=== PATIENT | female | born 1965 | race Caucasian/White ===

== ENCOUNTER 2020-10-15 10:47 | Emergency (ER) | payer OTHER, SELFPAY ==
[~2020-10-15] VITALS: Ht 162.6 cm; Wt 86.2 kg
[2020-10-15 11:03] VITALS: BP 101/87
--- NOTE | 2020-10-15 11:10 | NUR ---
54/F BIB SELF C/O COUGH. HEADACHE, FEVER X TODAY. PT IS RN. CLOSED CONTACT WITH CONFIRMED CASE OF COVID.MED HX: HYSTERECTOMY. DENIES N/V/D; SKIN IS PINK/WARM/DRY; AAOX4 WITH EVEN AND STEADY GAIT; LUNGS CLEAR BL; HR EVEN AND REGULAR; PT DENIES ANY FEVER, CP, SOB AT THIS TIME; PATIENT STATES PAIN OF 3/10 AT THIS TIME.
--- NOTE | 2020-10-15 11:54 | NUR ---
COVID SWAB SENT TO LAB
[2020-10-15 11:58] VITALS: BP 101/87
--- NOTE | 2020-10-15 11:58 | NUR ---
Patient discharged with v/s stable. Written and verbal after care instructions about covid 19 given and explained. Patient verbalized understanding. Ambulatory with steady gait. All questions addressed prior to discharge. Advised to follow up with PMD.
--- NOTE | 2020-10-17 12:14 | NUR ---
Covid results received from lab. Results = POSITIVE. Hard copy requested from lab and placed in infection controls mailbox.
== END 2020-10-15 11:58 | disposition home or self-care (01) ==
LOC: MED 10:47
DX: R50.9 Fever, unspecified (principal); Z20.828 Contact with and (suspected) exposure to other viral communicable diseases; Z88.8 Allergy status to other drugs, medicaments and biological substances
CPT/HCPCS: 99283; U0003

== ENCOUNTER 2020-10-21 19:18 | Emergency (ER) | payer OTHER, SELFPAY ==
[~2020-10-21] VITALS: Ht 162.6 cm; Wt 86.2 kg
[2020-10-21 19:30] VITALS: BP 140/78
--- NOTE | 2020-10-21 19:35 | NUR ---
PT AMBULATED TO BED #2
--- NOTE | 2020-10-21 19:40 | NUR ---
54 Y/O FEMALE PRESENTED TO THE ED C/O FEVER, SOB, FOSTER, & N/V. PT HAS DIMINISHED LUNG SOUNDS THROUGHOUT. CAP REFILL <3. S1 & S2 NOTED. PT STATED 6/10 PAIN FOR HER CONSTANT THROBBING/ACHING HEADACHE. NOT IN ACUTE DISTRESS AT THIS TIME. PT CONNECTED TO GUNNER'S MATE. BED IS LOCKED AND IN LOWEST POSITION. PMH: DENIES NKA
--- NOTE | 2020-10-21 20:00 | NUR ---
ERMD AT BEDSIDE FOR MEDICAL EVALUATION
[2020-10-21] MEDS ORDERED: DEXAMETHASONE 4 MG/ML VIAL IVP ONE (20:05)
[2020-10-21] MEDS ORDERED: HYDROXYCHLOROQUINE 200 MG TAB PO ONE (20:10)
[2020-10-21] MEDS ORDERED: ENOXAPARIN 80 MG/0.8 ML SYR SUBQ ONE (20:10)
--- NOTE | 2020-10-21 20:17 | NUR ---
BLOOD CULTURES AND LABS COLLECTED AND HANDED TO LAB.
--- NOTE | 2020-10-21 20:19 | NUR ---
RT AT BEDSIDE FOR ABG PROCEDURE.
--- NOTE | 2020-10-21 20:20 | NUR ---
EKG AT BEDSIDE FOR RN ADMINISTRATION.
[2020-10-21 20:32] LABS: BASOPHILS % (AUTO) 0.3 % (0.0-2.0); HEMATOCRIT 36.8 % (36-48); HEMOGLOBIN 12.6 g/dL (12.0-16.0); LYMPHOCYTES # (AUTO) 0.8 K/uL (2.5-16.5); LYMPHOCYTES % (AUTO) 13.6 % (20.5-51.1); MEAN CORPUSCULAR HEMOGLOBIN 31 pg (27-31); MEAN CORPUSCULAR HGB CONC 34 g/dL (33-37); MEAN CORPUSCULAR VOLUME 89.1 fL (80-94); MONOCYTES # (AUTO) 0.3 K/uL (0.8-1.0); MONOCYTES % (AUTO) 6.2 % (1.7-9.3); NEUTROPHILS # (AUTO) 4.5 K/uL (1.8-7.7); NEUTROPHILS % (AUTO) 79.9 % (42.2-75.2); PLATELET COUNT (AUTO) 152 K/uL (140-450); RED BLOOD CELL COUNT(AUTO) 4.13 MIL/uL (4.20-5.40); WHITE BLOOD COUNT (AUTO) 5.6 K/uL (4.8-10.8)
--- NOTE | 2020-10-21 20:35 | NUR ---
Offered bedpan for urine specimen collection, pt refused at this time. Bedside commode brought to bedside.
--- NOTE | 2020-10-21 20:38 | NUR ---
XRAY AT BEDSIDE.
[2020-10-21 20:49] LABS: ALBUMIN 3.3 g/dL (3.4-5.0); ANION GAP 20.6 (8-16); CARBON DIOXIDE 26.1 mmol/L (21-32); CREATININE 0.7 mg/dL (0.6-1.3); POTASSIUM 3.7 mmol/L (3.5-5.1); TOTAL BILIRUBIN 0.7 mg/dL (0.0-1.0)
--- NOTE | 2020-10-21 21:18 | NUR ---
ERMD MADE AWARE OF INABILITYY TO OBTAIN URINE SPECIMEN AT THIS TIME, ERMD STATED THERE IS NO NEED TO OBTAIN A URINE SPECIMEN AT THIS TIME AND THAT THE PT CAN BE DISCHARGED WITHOUT COLLECTING THE URINE SPECIMEN.
[2020-10-21 21:20] VITALS: BP 127/75
--- NOTE | 2020-10-21 21:20 | NUR ---
Patient discharged with v/s stable. Written and verbal after care instructions given and explained. Patient alert, oriented and verbalized understanding of instructions. Ambulatory with steady gait. All questions addressed prior to discharge. ID band removed. Patient advised to follow up with PMD. Rx of DEXAMETHASONE, ZINC, HYDROXYCHLOROQUINE given. Patient educated on indication of medication including possible reaction and side effects. Opportunity to ask questions provided and answered.
== END 2020-10-21 21:20 | disposition home or self-care (01) ==
LOC: MED 19:18
DX: U07.1 COVID-19 (principal); J12.89 Other viral pneumonia; Z88.8 Allergy status to other drugs, medicaments and biological substances; Z90.710 Acquired absence of both cervix and uterus
CPT/HCPCS: 36415; 71045; 80053; 83605; 85025; 87040; 93005; 96372; 96374; 99291; J1100; J1650

== ENCOUNTER 2020-12-03 15:57 | Emergency (ER) | payer OTHER, SELFPAY ==
[~2020-12-03] VITALS: Ht 193 cm; Wt 88.9 kg
[2020-12-03 16:25] VITALS: BP 148/80
--- NOTE | 2020-12-03 17:45 | NUR ---
applied caren wrap to right ankle without any issues
[2020-12-03 19:01] VITALS: BP 148/80
--- NOTE | 2020-12-03 19:02 | NUR ---
Patient assessed and discharged by KAT Marina, no nursing interventions performed
--- NOTE | 2020-12-03 19:05 | NUR ---
Patient discharged with v/s stable. Written and verbal after care instructions given and explained. Patient alert, oriented and verbalized understanding of instructions. Ambulatory with steady gait. All questions addressed prior to discharge. ID band removed. Patient advised to follow up with PMD. Rx of Naprosyn 500mg given. Patient educated on indication of medication including possible reaction and side effects. Opportunity to ask questions provided and answered.
== END 2020-12-03 19:05 | disposition home or self-care (01) ==
LOC: MED 15:57
DX: M25.571 Pain in right ankle and joints of right foot (principal); X50.1XXA Overexertion from prolonged static or awkward postures, initial encounter; Y93.89 Activity, other specified; Y92.89 Other specified places as the place of occurrence of the external cause; Y99.8 Other external cause status
CPT/HCPCS: 73610; 73630; 99284

== ENCOUNTER 2022-08-19 13:56 | Emergency (ER) | payer OTHER ==
[~2022-08-19] VITALS: Ht 160 cm; Wt 104.3 kg
[2022-08-19 14:06] VITALS: BP 159/92
[2022-08-19] MEDS ORDERED: ACETAMINOPHEN EXTRA STRENGTH 500 MG TAB PO ONE (14:10)
[2022-08-19] MEDS ORDERED: ACETAMINOPHEN EXTRA STRENGTH 500 MG TAB ONE (14:11)
[2022-08-19] MEDS ORDERED: PROM118S5 PO (19:03)
--- NOTE | 2022-08-19 19:25 | NUR ---
Patient discharged with v/s stable. Written and verbal after care instructions given and explained. Patient verbalized understanding. Ambulatory with steady gait. All questions addressed prior to discharge. Advised to follow up with PMD.
--- NOTE | 2022-08-19 19:30 | NUR ---
SWABS OBTAINED AND SENT TO LAB
[2022-08-19 19:35] VITALS: BP 159/92
== END 2022-08-19 19:35 | disposition home or self-care (01) ==
LOC: MED 13:56
DX: R31.9 Hematuria, unspecified (principal); Z20.822 Contact with and (suspected) exposure to COVID-19
CPT/HCPCS: 81002; 81025; 99283

== ENCOUNTER 2024-05-16 13:36 | Emergency (ER) | payer OTHER ==
[~2024-05-16] VITALS: Ht 162.6 cm; Wt 105.8 kg
[~2024-05-16 13:36] MED LIST: PROM118S5 PO
[2024-05-16 13:57] VITALS: BP 141/85; PULSE 67; RESP 16; TEMP 98.5; O2SAT 96
[2024-05-16] MEDS: KETOROLAC 30 MG/ML VIAL IM ONE (14:42)
[2024-05-16 15:58] VITALS: BP 138/87; PULSE 65; RESP 18; TEMP 98.3; O2SAT 98
[2024-05-16] MEDS ORDERED: NAPR-337 PO (16:02)
== END 2024-05-16 16:31 | disposition home or self-care (01) ==
LOC: MED 13:36
DX: S92.152A Displaced avulsion fracture (chip fracture) of left talus, initial encounter for closed fracture (principal); M25.562 Pain in left knee; M25.561 Pain in right knee; X50.1XXA Overexertion from prolonged static or awkward postures, initial encounter; Y93.89 Activity, other specified; Y92.89 Other specified places as the place of occurrence of the external cause; Y99.8 Other external cause status
CPT/HCPCS: 29515; 73562; 73610; 96372; 99284; J1885